=== PATIENT | male | born 1995 | race Hispanic/Latino ===

== ENCOUNTER 2022-11-24 20:38 | Emergency (ER) | payer OTHER ==
[~2022-11-24] VITALS: Ht 185.4 cm; Wt 83.9 kg
[2022-11-24 21:44] VITALS: O2SAT 100
[2022-11-24] MEDS ORDERED: CEPHALEXIN500 MG PO (21:50)
[2022-11-24] MEDS ORDERED: TETANUS/DIPHTHERIA TOX ADULT 0.5 ML SYR IM ONE (22:00)
== END 2022-11-24 22:07 | disposition home or self-care (01) ==
LOC: ER 20:44
DX: S81.812A Laceration without foreign body, left lower leg, initial encounter (principal); W26.8XXA Contact with other sharp object(s), not elsewhere classified, initial encounter; Y93.01 Activity, walking, marching and hiking; Y92.89 Other specified places as the place of occurrence of the external cause; F17.210 Nicotine dependence, cigarettes, uncomplicated
CPT/HCPCS: 90471; 90714; 99283

== ENCOUNTER 2023-06-27 17:42 | Emergency (ER) | payer OTHER ==
[~2023-06-27] VITALS: Ht 180.3 cm; Wt 89.8 kg
[~2023-06-27 17:42] MED LIST: CEPHALEXIN500 MG PO
[2023-06-27] MEDS ORDERED: PENICILLIN V P500 MG PO (18:30)
[2023-06-27] MEDS ORDERED: ANUSOL-HC25 MG RC (18:30)
[2023-06-27 18:41] VITALS: BP 142/90; PULSE 80; RESP 16; TEMP 98.8; O2SAT 98
== END 2023-06-27 18:40 | disposition home or self-care (01) ==
LOC: ER 17:48
DX: K62.5 Hemorrhage of anus and rectum (principal); K64.4 Residual hemorrhoidal skin tags; F17.210 Nicotine dependence, cigarettes, uncomplicated
CPT/HCPCS: 99282